=== PATIENT | female | born 1995 | race Hispanic/Latino ===

== ENCOUNTER 2017-01-08 10:38 | Emergency (ER) | payer MEDICAID, OTHER ==
[~2017-01-08] VITALS: Ht 154.9 cm; Wt 97.7 kg
[~2017-01-08 10:38] MED LIST: NAPR500T5 PO
[2017-01-08 10:43] VITALS: BP 103/69; PULSE 63; RESP 16; O2SAT 97
--- NOTE | 2017-01-08 11:01 | ED.REPORT ---
HPI-Back Pain Under 42 Date of Service Jan 08, 2017 ED Provider: Elsy Newton History of Present Illness: back pain since . slight nausea no vomiting, no hx. primary care is no one. 10/20. tylenol yesterday. lmp in october starts is normally regular. Nursing Notes Stated Complaint: LOW BACK PAIN Chief Complaint: Back Pain or Injury Nursing Notes Reviewed: Yes Allergies: Coded Allergies: No Known Allergies (Unverified , 04/17/16) Scheduled PRN Naproxen (Naproxen) 500 Mg Tablet.dr 500 MG PO BID PRN PRN For Pain General Time Seen by MD: 11:01 Chief Complaint Back pain Hx Obtained From: Patient Sudden in Onset?: No Caused by: Spontaneous/no mechanism Past Medical History Past Medical History Pt w/prior ED visits for Abd Pain (neg US/CT 05/2015 notable only for fatty liver, no stones) Denies: Asthma Past Surgical History Reports: Appendectomy Family History Reports: Gallbladder disease Smoking History Former Smoker (quit 2 years ago 2014), Current Some Day Smoker Social History Alcohol Use: Denies alcohol use Drug Use: Denies drug use Other Social History: Good social support, Local resident Occupation lives with partner, works at [employer] 01/08/2017 Ambulatory Status Independent Review of Systems Basic Review of Systems Eyes: Vision NL, No discharge ENT: No nasal congestion Skin: No bruising, No rash, No itch Constitutional: Denies: Fever Respiratory: Denies: Shortness of breath Cardiovascular: Denies: Chest pain Female: Denies: Dysuria Musculoskeletal: Reports: Back pain Neurologic: Denies: Bladder dysfunction, Bowel dysfunction Complete sys rev & neg: except as marked. Physical Exam Initial Vital Signs Vital Signs (First) Date Time Temp Pulse Resp B/P Pulse Ox O2 Delivery O2 Flow Rate FiO2 01/08/17 10:43 36.9 63 16 103/69 97 Room Air Initial VS: Reviewed, Vital signs normal Head / Eyes: Atraumatic, Normocephalic, PERRL ENT: Mucous membranes moist, Conjunctiva normal, No scleral icterus Neck: Supple, Non-tender, Full range of motion Respiratory: Breath sounds normal, Clear to auscultation, No respiratory distress Cardiovascular: Heart sounds normal, Intact distal pulses Abdomen / GI: Soft, Non-tender, No guarding, No rebound, No distention Lymphatic: No lymphadenopathy Extremities: Vascular intact, Neuro intact, No swelling, No tenderness Skin: Warm, Dry, No cyanosis Psychiatric: Mood/affect normal, Behavior normal, Normal thought content General/Constitutional: Awake, Alert, No acute distress, Well appearing, Well developed, Well hydrated, Well nourished, Cooperative, Not toxic appearing Appearance / Presentation: Positive: Obese sitting comfortable in chair using phone/tablet Back: Atraumatic, Inspection NL, Full range of motion, Painless range of motion patient indicates left lower back pain, no rash noted Neurologic: Oriented X3, Speech NL, No motor deficits, No sensory deficits, Gait NL Neck: Atraumatic, Supple, No meningismus, Full range of motion Respiratory / Chest: Atraumatic, Breath sounds NL, Breath sounds = bilat, No respiratory distress Cardiovascular: Heart rate NL, Regular rhythm, Heart sounds NL, No gallop, No murmurs, No rubs Lower Extremity / Pelvis / MS: Atraumatic, Inspection NL, Full range of motion , No swelling, Non-tender, No erythema Interpretation & Diagnostics Lab Results Interpretation Lab Results Interpretation: u preg is negative, u-tox positive for THC only, u dip is negative Re-Eval/Medical Decision Med Decision/Clinical Course 21 year old female here for evualation of left lower back pain. Urine preg is negatve, u tox is positive for THC only. exam is reassuring. no sign of urine infection or etopic preg. Patient encouraged to follow with primary care Discharge & Departure Impression: Primary Impression: Low back pain Chronicity: acute Back pain laterality: left Sciatica presence: without sciatica Qualified Code: M54.5 - Low back pain Disposition: Home Patient Instructions: Acute Low Back Pain (ED) Additional Instructions: The urine is negative for any sign of infection or blood. You are not at this time. You have received a toradol injection. Use ketorolac 10 mg up to 4 times a day as needed for discomfort. NEED to establish in primary care. Please consider [facility]. Referrals: [facility] EDSupervising Provider for APC: Toy Patino MD Attending Statement I saw and evaluated the patient in conjunction with the INSOLVENCY CONSULTANT. I agree with the plan and findings as documented above. In brief, 21-year-old female presenting to the ED for evaluation with low back pain. Well appearing, no acute distress. Nonlabored respirations. Good peripheral perfusion. RRR. No bowel or bladder incontinence, no urinary retention, no fever, no history of IV drug abuse. Negative urine test. Given reassuring history, plan discharge home w/ careful return precautions, close outpatient follow up. Patient agreeable to plan as stated, no further questions. copies to: [facility] Elsy Newton Jan 08, 2017 11:01 Toy Patino MD Jan 08, 2017 11:51
[2017-01-08 12:12] VITALS: BP 103/69; PULSE 63; RESP 16; O2SAT 97
== END 2017-01-08 12:13 | disposition home or self-care (01) ==
LOC: SED 10:38
DX: M54.5 Low back pain (principal); R11.0 Nausea; Z87.891 Personal history of nicotine dependence
CPT/HCPCS: 81025; 96372; 99284; J1885